=== PATIENT | female | born 1960 | race Caucasian/White ===

== ENCOUNTER 2019-01-16 12:31 | Emergency (ER) | payer SELFPAY ==
[~2019-01-16] VITALS: Ht 167.6 cm; Wt 86.9 kg
[2019-01-16] MEDS ORDERED: MORPHINE SULFATE 4 MG/ML, 1ML ONE (13:26)
[2019-01-16] MEDS ORDERED: KETOROLAC 30 MG/1 ML ONE (13:26)
[2019-01-16] MEDS ORDERED: ONDANSETRON 2MG/ML, 2ML ONE (13:26)
[2019-01-16] MEDS ORDERED: ONDANSETRON 2MG/ML, 2ML IVPush ONE (13:30)
[2019-01-16] MEDS ORDERED: SODIUM CHLORIDE FLUSH 10ML SYR IVF ONE (13:30)
[2019-01-16] MEDS ORDERED: KETOROLAC 30 MG/1 ML IVPush ONE (13:30)
[2019-01-16] MEDS ORDERED: MORPHINE SULFATE 4 MG/ML, 1ML IVPush PRN (13:30)
[2019-01-16 13:53] LABS: BASOPHILS # (AUTO) 0.11 x10^3/uL (0-0.1); BASOPHILS % (AUTO) 1 % (0-1); EOSINOPHILS # (AUTO) 0.19 x10^3/uL (0-0.4); EOSINOPHILS % (AUTO) 2 % (1-7); LYMPHOCYTES % (AUTO) 30 % (22-44); MD NO; MEAN CORPUSCULAR HEMOGLOBIN 29.7 pg (27.0-34.8); MEAN CORPUSCULAR HGB CONC 33.2 g/dL (32.4-35.8); MEAN CORPUSCULAR VOLUME 89.5 fL (80-100); MEAN PLATELET VOLUME 8.1 fL (7.4-10.4); MONOCYTES # (AUTO) 0.82 x10^3/uL (0.2-0.8); MONOCYTES % (AUTO) 7 % (2-9); NEUTROPHILS # (AUTO) 7.53 x10^3/uL (1.8-6.8); NEUTROPHILS % (AUTO) 61 % (42-75); PLATELET COUNT 342 x10^3/uL (130-400); RED BLOOD COUNT 5.36 x10^6/uL (3.82-5.3); RED CELL DISTRIBUTION WIDTH 13.3 % (9.6-15.2)
--- NOTE | 2019-01-16 14:15 | NUR ---
UNABLE TO PROVIDE URINE SAMPLE
[2019-01-16 14:21] LABS: CHLORIDE 111 mmol/L (98-107)
[2019-01-16 14:27] LABS: ALBUMIN 3.3 g/dL (3.4-5.0); ANION GAP 5 mmol/L (5-15); CALCIUM 8.6 mg/dL (8.5-10.1); CREATININE 0.86 mg/dL (0.55-1.02)
--- NOTE | 2019-01-16 15:13 | NUR ---
PT STILL UNABLE TO PROVIDE URINE SAMPLE. WATER TO PT.
[2019-01-16 15:48] LABS: MICROSCOPIC NOT IND
[2019-01-16 15:55] VITALS: BP 127/76
[2019-01-16 15:58] LABS: CULTURE INDICATED? NO
== END 2019-01-16 16:24 | disposition home or self-care (01) ==
LOC: ED 16:10
DX: S39.012A Strain of muscle, fascia and tendon of lower back, initial encounter (principal); F17.200 Nicotine dependence, unspecified, uncomplicated; X58.XXXA Exposure to other specified factors, initial encounter; Y93.89 Activity, other specified; Y92.89 Other specified places as the place of occurrence of the external cause; Y99.8 Other external cause status
CPT/HCPCS: 36415; 74176; 80048; 81003; 82040; 85025; 96374; 96375; 99284; J1885; J2405